=== PATIENT | male | born 2000 | race Caucasian/White ===

== ENCOUNTER 2018-11-30 18:30 | Emergency (ER) | payer MEDICAID, OTHER ==
[~2018-11-30] VITALS: Ht 182.9 cm; Wt 95.0 kg
[~2018-11-30 18:30] MED LIST: CLIN-96 PO; IBUP1TAB4 PO
[2018-11-30] MEDS ORDERED: acetaminophen 325mg tablet PO ONE (19:00)
[2018-11-30] MEDS ORDERED: TRAM50TA2 PO (20:09)
[2018-11-30 20:20] VITALS: BP 136/68
== END 2018-11-30 20:22 | disposition home or self-care (01) ==
LOC: ER 18:30
DX: S13.4XXA Sprain of ligaments of cervical spine, initial encounter (principal); S00.512A Abrasion of oral cavity, initial encounter; F17.200 Nicotine dependence, unspecified, uncomplicated; Z79.2 Long term (current) use of antibiotics; Z79.899 Other long term (current) drug therapy; V29.9XXA Motorcycle rider (driver) (passenger) injured in unspecified traffic accident, initial encounter; Y93.89 Activity, other specified; Y92.89 Other specified places as the place of occurrence of the external cause; Y99.8 Other external cause status
CPT/HCPCS: 70490; 99284

== ENCOUNTER 2019-03-26 15:27 | Emergency (ER) | payer OTHER ==
[~2019-03-26] VITALS: Ht 182.9 cm; Wt 117.3 kg
[~2019-03-26 15:27] MED LIST changes: +CLIN-90 PO; -CLIN-96 PO
[2019-03-26] MEDS ORDERED: ketorolac trometh. 30mg/ml inj. IM ONE (18:25)
[2019-03-26 19:02] VITALS: BP 129/64
== END 2019-03-26 19:03 | disposition home or self-care (01) ==
LOC: ER 15:29
DX: J06.9 Acute upper respiratory infection, unspecified (principal); Z88.6 Allergy status to analgesic agent
CPT/HCPCS: 71046; 96372; 99283; J1885

== ENCOUNTER 2019-03-28 17:41 | Emergency (ER) | payer MEDICAID, OTHER ==
[~2019-03-28] VITALS: Ht 182.9 cm; Wt 113.0 kg
[2019-03-28 18:07] VITALS: BP 137/87
[2019-03-28] MEDS ORDERED: LIDOcaine Viscous 15ml cup MM STA (19:36)
[2019-03-28 20:16] LABS: BASOPHILS % (AUTO) 0.3 % (0-1); EOSINOPHILS # (AUTO) 0.1 X10'3 (0-0.9); EOSINOPHILS % (AUTO) 0.8 % (0-6); LYMPHOCYTES # (AUTO) 1.6 X10'3 (1.1-4.8); LYMPHOCYTES % (AUTO) 21.6 % (21-51); MEAN CORPUSCULAR HEMOGLOBIN 27.2 PG (27.0-31.0); MEAN CORPUSCULAR HGB CONC 33.3 g/dL (33.0-36.5); MEAN CORPUSCULAR VOLUME 81.7 FL (78-98); MEAN PLATELET VOLUME 8.2 FL (7.4-10.4); MONOCYTES # (AUTO) 1.1 X10'3 (0-0.9); MONOCYTES % (AUTO) 14.5 % (2-12); NEUTROPHILS # (AUTO) 4.7 X10'3 (1.8-7.7); NEUTROPHILS % (AUTO) 62.8 % (42-75); PLATELET COUNT 274 X10'3 (140-440); RED BLOOD COUNT 5.88 X10'6 (4.70-6.10); WHITE BLOOD COUNT 7.5 X10'3 (4.5-11.0)
[2019-03-28 20:27] LABS: ALBUMIN 4.1 G/DL (3.4-5.0); ANION GAP 10 (8-16); BLOOD UREA NITROGEN 12 MG/DL (7-18); BUN/CREATININE RATIO 10.3 (5.4-32.0); CALCIUM 9.1 MG/DL (8.5-10.1); CHLORIDE 103 MMOL/L (99-107); CREATININE 1.16 MG/DL (0.60-1.10); GLUCOSE 76 MG/DL (70-104); POTASSIUM 3.9 MMOL/L (3.5-5.1); SODIUM 140 MMOL/L (135-145); TOTAL CARBON DIOXIDE 27.2 MMOL/L (24-32); eGFR 80 ML/MIN
[2019-03-28 20:32] LABS: MONOTEST NEGATIVE (Neg)
[2019-03-28] MEDS ORDERED: dexamethasone sod phosphate 10mg/ml inj PO STA (20:49)
[2019-03-28] MEDS ORDERED: GUAI5SYR4 PO (20:57)
== END 2019-03-28 21:23 | disposition home or self-care (01) ==
LOC: ER 17:42
DX: J02.9 Acute pharyngitis, unspecified (principal); B08.5 Enteroviral vesicular pharyngitis; Z88.6 Allergy status to analgesic agent
CPT/HCPCS: 36415; 80048; 85025; 86308; 87081; 87880; 99283; J1100

== ENCOUNTER 2019-05-27 11:36 | Emergency (ER) | payer MEDICAID, OTHER ==
[~2019-05-27] VITALS: Ht 182.9 cm; Wt 114.6 kg
[~2019-05-27 11:36] MED LIST changes: -CLIN-90 PO; +CLIN-97 PO; +GUAI5SYR4 PO
[2019-05-27 11:56] VITALS: BP 139/95
[2019-05-27] MEDS ORDERED: ACET-1008 PO (13:04)
[2019-05-27] MEDS ORDERED: PENI250T2 PO (13:05)
== END 2019-05-27 13:21 | disposition home or self-care (01) ==
LOC: ER 11:37
DX: K04.7 Periapical abscess without sinus (principal); Z88.6 Allergy status to analgesic agent; Z79.899 Other long term (current) drug therapy
CPT/HCPCS: 99283

== ENCOUNTER 2022-08-17 22:08 | Emergency (ER) | payer MEDICAID ==
[~2022-08-17] VITALS: Ht 182.9 cm; Wt 145.0 kg
[2022-08-17 22:18] VITALS: BP 137/91
[2022-08-17] MEDS ORDERED: AMOX-101 PO (22:35)
[2022-08-17] MEDS ORDERED: IBUP-1986 PO (22:35)
== END 2022-08-17 22:43 | disposition home or self-care (01) ==
LOC: ER 22:09
DX: K04.7 Periapical abscess without sinus (principal); Z88.6 Allergy status to analgesic agent; Z79.899 Other long term (current) drug therapy
CPT/HCPCS: 99283

== ENCOUNTER 2022-11-01 18:50 | Emergency (ER) | payer MEDICAID ==
[~2022-11-01] VITALS: Ht 182.9 cm; Wt 136.4 kg
[~2022-11-01 18:50] MED LIST changes: +IBUP-1986 PO
[2022-11-01 19:08] VITALS: TEMP 98
[2022-11-01] MEDS ORDERED: HYDROcodone/acetaminophen 5mg/325mg tablet PO ONE (21:30)
[2022-11-01] MEDS ORDERED: NAPR-1170 PO (22:43)
[2022-11-01 22:48] VITALS: BP 127/98; PULSE 70; RESP 14; O2SAT 100
[2022-11-01] MEDS ORDERED: LIDO1ADH3 TOP (22:48)
[2022-11-01] MEDS ORDERED: ACET-1025 PO (22:48)
== END 2022-11-01 22:50 | disposition home or self-care (01) ==
LOC: ER 18:51
DX: S19.9XXA Unspecified injury of neck, initial encounter (principal); S09.90XA Unspecified injury of head, initial encounter; M54.2 Cervicalgia; Z88.6 Allergy status to analgesic agent; Z79.2 Long term (current) use of antibiotics; V89.2XXA Person injured in unspecified motor-vehicle accident, traffic, initial encounter; Y93.89 Activity, other specified; Y92.89 Other specified places as the place of occurrence of the external cause; Y99.8 Other external cause status
CPT/HCPCS: 70450; 72125; 72131; 99284

== ENCOUNTER 2023-10-25 13:52 | Emergency (ER) | payer MEDICAID, OTHER ==
[~2023-10-25] VITALS: Ht 180.3 cm; Wt 136.4 kg
[~2023-10-25 13:52] MED LIST changes: +LIDO1ADH3 TOP; +NAPR-1170 PO
[2023-10-25] MEDS ORDERED: PRED20TA PO (14:44)
[2023-10-25] MEDS: dexamethasone sod phosphate 10mg/ml inj IM STA (15:36)
[2023-10-25 15:44] VITALS: BP 124/70; PULSE 77; RESP 17; TEMP 97.9; O2SAT 98
== END 2023-10-25 15:41 | disposition home or self-care (01) ==
LOC: ER 13:53
DX: M54.16 Radiculopathy, lumbar region (principal); G89.29 Other chronic pain; M54.50 Low back pain, unspecified; Z88.6 Allergy status to analgesic agent
CPT/HCPCS: 96372; 99283; J1100